=== PATIENT | female | born 1995 | race Caucasian/White ===

== ENCOUNTER 2022-04-21 12:39 | Emergency (ER) | payer OTHER ==
--- OUTSIDE RECORDS SUMMARY | 2022-04-21 12:42 | XMS REPORT | Continuity of Care Document ---
:1995 Author Organization Formerly [facility] t Address [address] [place] [address] Care Team Providers Name Role Phone PCP, PATIENT DOES NOT HAVE A Primary Care Physician UnavailMirian Trent MD Attending Clinician MIRIAN HANSEN Attending Clinician Unavailable Payers Payer Name Policy Type Policy Number Effective Date Expiration Date S ource Problems Condition Condition Condition Status Onset Resolution Last Treating Co mments Source Name Details Category Date Date Treatment Clinician Date Obesity Obesity Disease Active Univers (BMI (BMI 5-12 ity of 30-39.9) 30-39.9) 00:00: [address] Allergies, Adverse Reactions, Alerts Allergy Allergy Status Severity Reaction(s) Onset Inactive Treating Comm ents Source Name Type Date Date Clinician NO KNOWN Drug Active Univers ALLERGIE Class ity of S [facility] Social History Social Habit Start Date Stop Date Quantity Comments Source Exposure to Not sure [facility] SARS-CoV-2 [facility] (event) [place] Alcohol intake 2021-09-15 2021-09-15 Ex-drinker [facility] 00:00:00 00:00:00 (finding) [facility] Tobacco use and 2019-12-21 2019-12-21 Never used Universit y of exposure 00:00:00 00:00:00 [facility] Sex Ass[birth year] At [birth year] Universit y of 00:00:00 00:00:00 [facility] Smoking Status Start Date Stop Date Source Never smoker [facility] Medications Ordered Filled Start Stop Current Ordering Indication Dosage Frequency Signature Comments Components Source Medication Medication Date Date Medication? Clinician (SIG) Name Name PNV Yes Take by Univers no.153/FA/o 2-18 mouth. ity of m3/dha/epa/ 09:18: [place] [facility] ( Branch GUMMIES ORAL) PNV Yes Take by Univers no.153/FA/o 2-18 mouth. ity of m3/dha/epa/ :18: [place] [facility] ( Branch GUMMIES ORAL) ibuprofen 2020-08 Yes [id number] 800mg Take 1 Univers 800 mg 2-08 102 tablet by ity of tablet 00:00: mouth [place] 00 every 6 Medical (six) Branch hours as needed for Pain (scale 4-6). ibuprofen 2020-08 Yes [id number] 800mg Take 1 Univers 800 mg 2-08 102 tablet by ity of tablet 00:00: mouth [place] 00 every 6 Medical (six) Branch hours as needed for Pain (scale 4-6). ferrous Yes [id number] 325mg Take 1 Un lina sulfate 325 9-23 tablet by ity of mg (65 mg 00:00: mouth 2 [place] iron) 00 (two) Medical tablet times Branch daily. ferrous Yes [id number] 325mg Take 1 Un lina sulfate 325 9-23 tablet by ity of mg (65 mg 00:00: mouth 2 [place] iron) 00 (two) Medical tablet times Branch daily. Immunizations Ordered Filled Immunization Date Status Comments [facility] e Immunization Name Name Influenza Virus 2021-06-23 Completed Universit y of Vaccine [facility], 00:00:00 [place] [facility] Preserv and ABX Branch Free 6 MO-64 YRS Influenza Virus 2021-06-23 Completed Universit y of Vaccine [facility], 00:00:00 [place] [facility] Preserv and ABX Branch Free 6 MO-64 YRS TDAP 2021-05-07 Completed [facility] 00:00:00 [facility] TDAP 2021-05-07 Completed [facility] 00:00:00 [facility] Vital Signs Vital Name Observation Time Observation Value Comments Source Systolic blood 2021-11-20 13:29:00 116 mm[Hg] Univer sity of pressure [facility] Diastolic blood 2021-11-20 13:29:00 77 mm[Hg] Unive rsity of pressure [facility] Heart rate 2021-11-20 13:29:00 90 /min [facility] Body temperature 2021-11-20 13:29:00 36.61 [place] Univ ersity of [facility] Body height 2021-11-20 13:29:00 160 cm [facility] Body weight 2021-11-20 13:29:00 73.573 kg [facility] BMI 2021-11-20 13:29:00 28.73 kg/m2 [facility] Procedures This patient has no known procedures. Encounters Start End Encounter Admission Attending Care Care Encounter Source Date/Time Date/Time Type Type Clinicians Facility Department ID 2021-11-20 2021-11-20 Office Tyrone [facility] [id number] Univers 08:30:00 08:56:43 Visit Mirian BOCANEGRA [id number] LilianABRAZO [facility] [id number] [place] PROFESSIO [id number] Az dical [address] 2021-11-20 2021-11-20 Outpatient R [facility] [id number] Univers 08:30:00 08:56:43 MIRIAN mcdermott [facility] Results This patient has no known results.
[2022-04-21 13:14] LABS: Urine Blood Negative (Negative); Urine Glucose Negative (Negative); Urine Protein Negative (Negative); Urine Specific Gravity 1.025 (1.005-1.030); Urine pH 6.5 (5.0-7.0)
[2022-04-21 13:20] LABS: Urine Specific Gravity/Preg 1.025 (1.005-1.030)
[2022-04-21] MEDS ORDERED: LIDOCAINE 4% PATCH ONE (13:26)
[2022-04-21] MEDS ORDERED: KETOROLAC 30 MG/ML INJ ONE (13:26)
[2022-04-21 13:32] LABS: Urine Mucus Slight /HPF (None Seen); Urine RBC <5 /HPF (None Seen)
--- NOTE | 2022-04-21 13:32 | RAD REPORT ---
EXAM DESCRIPTION: RAD - Lumbar Spine 3 Views - 04/21/2022 1:22 pm CLINICAL HISTORY: Back pain FINDINGS: No fracture or dislocation is seen. Mild disc space narrowing L5-S1 Mild scoliosis
--- NOTE | 2022-04-21 14:15 | EDPHYS ---
Physician Documentation [facility] Name: Jenny Cheung Age: 27 yrs Sex: Female : 1995 Arrival Date: 04/21/2022 Time: 12:41 Bed 12 Private MD: ED Physician Akbar Phoenix HPI: 04/21 13:00 This 27 yrs old Female presents to ER via Ambulatory with complaints of Back Pain. cp 13:00 The patient presents with pain that is acute. The symptoms are located in the right low cp back. Onset: The symptoms/episode began/occurred yesterday. intermittent down back of right leg. Associated signs and symptoms: Pertinent negatives: abdominal pain, chest pain, dysuria, fever, hematuria, incontinence, numbness, urinary retention, weakness. The problem was sustained pain started after bending over to pick son up. Modifying factors: the patient symptoms are aggravated by standing, walking. Severity of symptoms: in the emergency department the symptoms are unchanged. Patient reports history of lower back injury as child sustained from fall. 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 - Social history:: Smoking status: Patient denies any tobacco usage or history of. ROS: 13:05 Constitutional: Negative for body aches, chills, fever, poor PO intake. cp 13:05 Eyes: Negative for injury, pain, redness, and discharge. cp 13:05 ENT: Negative for drainage from ear(s), ear pain, sore throat, difficulty swallowing, difficulty handling secretions. 13:05 Neck: Negative for pain with movement, pain at rest, stiffness. 13:05 Cardiovascular: Negative for chest pain, palpitations. 13:05 Respiratory: Negative for cough, shortness of breath, wheezing. 13:05 Abdomen/GI: Negative for abdominal pain, vomiting, diarrhea, constipation, rectal pain, bowel incontinence. 13:05 Back: Positive for pain at rest, pain with movement. 13:05 : Negative for urinary symptoms, difficulty urinating, bladder incontinence. 13:05 Neuro: Negative for altered mental status, headache, numbness, tingling, weakness. 13:05 All other systems are negative. Exam: 13:10 Constitutional: The patient appears in no acute distress, alert, awake, non-toxic, well cp developed, well nourished, uncomfortable. 13:10 Head/Face: Normocephalic, atraumatic. cp 13:10 Eyes: Periorbital structures: appear normal, Conjunctiva: normal, no exudate, no injection, Sclera: no appreciated abnormality, Lids and lashes: appear normal, bilaterally. 13:10 ENT: External ear(s): are unremarkable, Nose: is normal, Mouth: Lips: moist, Oral mucosa: pink and intact, moist, Posterior pharynx: Airway: no evidence of obstruction, patent. 13:10 Neck: ROM/movement: is normal, is supple, without pain, no range of motions limitations. 13:10 Chest/axilla: Inspection: normal. 13:10 Cardiovascular: Rate: normal, Rhythm: regular. 13:10 Respiratory: the patient does not display signs of respiratory distress, Respirations: normal, no use of accessory muscles, no retractions, labored breathing, is not present, Breath sounds: are clear throughout, no decreased breath sounds, no stridor, no wheezing. 13:10 Abdomen/GI: Exam negative for discomfort, distension, guarding, Inspection: abdomen appears normal. 13:10 Back: pain, that is moderate, of the right low back, ROM is painful, with all movement, CVA tenderness, is absent, Straight leg raises: of both lower extremities does not illicit pain. 13:10 Skin: no rash present. 13:10 Neuro: Orientation: to person, place \T\ time. Mentation: is normal, Motor: moves all fours, strength is normal, Sensation: is normal, Gait: is steady, Deep tendon reflexes are 2+ (normal) in the right patellar, right Achilles, left patellar and left Achilles. Vital Signs: 12:47 BP 128 / 80; Pulse 78; Resp 20; Temp 98.8; Pulse Ox 100% ; Weight 81.65 kg; Height 5 kb3 ft. 3 in. (160.02 cm); Pain 10/10; 14:51 Pulse 76; Resp 17; Pulse Ox 100% on R/A; jd3 12:47 Body Mass Index 31.89 (81.65 kg, 160.02 cm) kb3 MDM: 12:53 Patient medically screened. cp 14:14 Data reviewed: vital signs, nurses notes, lab test result(s), radiologic studies, plain cp films. 14:14 Differential diagnosis: Ureterolithiasis UTI, sciatica, caudae equina, spinal stenosis. cp Test interpretation: by ED physician or midlevel provider: plain radiologic studies. Counseling: I had a detailed discussion with the patient and/or guardian regarding: the historical points, exam findings, and any diagnostic results supporting the discharge/admit diagnosis, lab results, radiology results, the need for outpatient follow up, a family practitioner. 04/21 12:53 Order name: Urine Microscopic Only; Complete Time: 13:32 cp 04/21 13:14 Order name: Urine --Ancillary (enter results); Complete Time: 13:32 bd 04/21 13:01 Order name: XRAY Lumbar Spine (3 Views); Complete Time: 19:53 cp 04/21 13:15 Order name: Urine Dipstick-Ancillary; Complete Time: 13:32 EDMS 04/21 13:32 Interpretation: Normal except: UESTR Trace. cp 04/21 12:53 Order name: Urine Dipstick-Ancillary (obtain specimen); Complete Time: 13:09 cp 04/21 12:53 Order name: Urine Test (obtain specimen); Complete Time: 13:09 cp 04/21 13:01 Order name: Misc. Order: may give meds if test negative; Complete Time: 13:15 cp Administered Medications: 13:24 Drug: Lidoderm Patch 5 % (700 mg/patch) 1 patches Route: Topical; Site: affected area; jd3 14:21 Follow up: Response: No adverse reaction jd3 13:24 Drug: Ketorolac 60 mg Route: IM; Site: right gluteus; jd3 14:21 Follow up: Response: No adverse reaction jd3 Disposition Summary: 04/21/22 14:14 Discharge Ordered Location: Home cp Problem: new cp Symptoms: have improved cp Condition: Stable cp Diagnosis - Low back pain cp - Radiculopathy, lumbar region cp Followup: cp - With: Private Physician - When: 2 - 3 days - Reason: Worsening of condition Discharge Instructions: - Discharge Summary Sheet cp - Acute Back Pain, Adult cp - Back Injury Prevention, Idup-dw-Nsuj cp - Heat Therapy cp - Back Exercises cp Forms: - Medication Reconciliation Form cp - Thank You Letter cp - Antibiotic Education cp - Prescription Opioid Use cp Prescriptions: - Lidoderm 5 % Topical adhesive patch,medicated - apply 1 patch by TOPICAL route once daily As needed; 10 patch; Refills: 0, cp Product Selection Permitted - Cyclobenzaprine 10 mg Oral Tablet - take 1 tablet by ORAL route every 8 hours As needed; 20 tablet; Refills: 0, cp Product Selection Permitted - Medrol (Too) 4 mg Oral Tablets, Dose Pack - take 1 tablet by ORAL route as directed - follow package instructions; 1 cp packet; Refills: 0, Product Selection Permitted Addendum: 04/22/2022 19:52 Co-signature as Attending Physician, Akbar Phoenix DO I was immediately available on-site m s3 in the Emergency Department for consultation in the care of the patient. . Signatures: Dispatcher [employer] EDMS Ivan Farfan PA PA cp Davies, Jonathon, RN RN jd3 Akbar Phoenix DO DO ms3 Erin Love, RN RN kb3
--- NOTE | 2022-04-21 14:15 | ER ---
Nurse's Notes [facility] Name: Jenny Cheung Age: 27 yrs Sex: Female : 1995 Arrival Date: 04/21/2022 Time: 12:41 Bed 12 Private MD: Diagnosis: Low back pain;Radiculopathy, lumbar region Presentation: 04/21 12:47 Chief complaint: Patient states: Pt reports she she picked her son up yesterday and kb3 felt lower back pain radiating down her right leg. Pain is worse with walking. Coronavirus screen: Vaccine status: Patient reports receiving the 2nd dose of the covid vaccine. Client denies travel out of the [place] in the last 14 days. At this time, the client does not indicate any symptoms associated with coronavirus-19. Ebola Screen: Patient negative for fever greater than or equal to 101.5 degrees Fahrenheit, and additional compatible Ebola Virus Disease symptoms Patient denies exposure to infectious person. Patient denies travel to an Ebola-affected area in the 21 days before illness onset. No symptoms or risks identified at this time. Initial Sepsis Screen: Does the patient meet any 2 criteria? No. Patient's initial sepsis screen is negative. Does the patient have a suspected source of infection? No. Patient's initial sepsis screen is negative. Risk Assessment: Do you want to hurt yourself or someone else? Patient reports no desire to harm self or others. Onset of symptoms was April 20, 2022 at 12:00. 12:47 Method Of Arrival: Ambulatory kb3 12:47 Acuity: JERRI 4 kb3 Triage Assessment: 12:50 General: Appears in no apparent distress. uncomfortable, Behavior is calm, cooperative. kb3 Pain: Complains of pain in left low back and right low back Pain radiates to right gluteal fold and right hamstring Pain currently is 10 out of 10 on a pain scale. Quality of pain is described as burning, sharp, shooting, stabbing, Pain began 1 day ago. Is continuous. Musculoskeletal: Pain in lower back, worse on right side, radiating down right leg. 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 - Social history:: Smoking status: Patient denies any tobacco usage or history of. Screenin:25 Abuse screen: Denies threats or abuse. Nutritional screening: No deficits noted. jd3 Tuberculosis screening: No symptoms or risk factors identified. Fall Risk Ambulatory Aid- None/Bed Rest/Nurse Assist (0 pts). Gait- Normal/Bed Rest/Wheelchair (0 pts) Mental Status- Oriented to own ability (0 pts). Total Jiménez Fall Scale indicates No Risk (0-24 pts). Assessment: 13:24 General: Appears in no apparent distress. uncomfortable, Behavior is calm, cooperative, jd3 appropriate for age. Pain: Complains of pain in right lower back Pain radiates to right leg Quality of pain is described as sharp, shooting. Neuro: Meyers Agitation-Sedation Scale (RASS): 0 - Alert and Calm Level of Consciousness is awake, alert, obeys commands, Oriented to person, place, time, situation. Cardiovascular: Denies chest pain, Capillary refill < 3 seconds Patient's skin is warm and dry. Respiratory: Airway is patent Respiratory effort is even, unlabored, Respiratory pattern is regular, symmetrical, Denies cough, shortness of breath. GI: No signs and/or symptoms were reported involving the gastrointestinal system. : No signs and/or symptoms were reported regarding the genitourinary system. EENT: No signs and/or symptoms were reported regarding the EENT system. Derm: Skin is intact, Skin is dry, Skin is normal, Skin temperature is warm. Musculoskeletal: Circulation, motion, and sensation intact. Range of motion: intact in all extremities. 14:20 Reassessment: Patient appears in no apparent distress at this time. No changes from jd3 previously documented assessment. Patient and/or family updated on plan of care and expected duration. Pain level reassessed. Patient is alert, oriented x 3, equal unlabored respirations, skin warm/dry/pink. 14:51 Reassessment: Patient appears in no apparent distress at this time. Patient and/or jd3 family updated on plan of care and expected duration. Pain level reassessed. Patient is alert, oriented x 3, equal unlabored respirations, skin warm/dry/pink. Patient states feeling better. Vital Signs: 12:47 BP 128 / 80; Pulse 78; Resp 20; Temp 98.8; Pulse Ox 100% ; Weight 81.65 kg; Height 5 kb3 ft. 3 in. (160.02 cm); Pain 10/10; 14:51 Pulse 76; Resp 17; Pulse Ox 100% on R/A; jd3 12:47 Body Mass Index 31.89 (81.65 kg, 160.02 cm) kb3 ED Course: 12:41 Patient arrived in ED. rg4 12:44 Ivan Farfan PA is PHCP. cp 12:44 Akbar Phoenix DO is Attending Physician. cp 12:50 Triage completed. kb3 12:50 Arm band placed on right wrist. Patient placed in an exam room. kb3 12:54 Sha Hobbs RN is Primary Nurse. jd3 13:24 XRAY Lumbar Spine (3 Views) In Process Unspecified. EDMS 13:26 Patient has correct armband on for positive identification. Bed in low position. Call jd3 light in reach. Side rails up X 1. Pulse ox on. NIBP on. 14:51 No provider procedures requiring assistance completed. Patient did not have IV access jd3 during this emergency room visit. Administered Medications: 13:24 Drug: Lidoderm Patch 5 % (700 mg/patch) 1 patches Route: Topical; Site: affected area; jd3 14:21 Follow up: Response: No adverse reaction jd3 13:24 Drug: Ketorolac 60 mg Route: IM; Site: right gluteus; jd3 14:21 Follow up: Response: No adverse reaction jd3 Medication: 13:25 VIS not applicable for this client. jd3 Outcome: 14:14 Discharge ordered by MD. cp 14:51 Discharged to home ambulatory, with family. jd3 14:51 Condition: stable 14:51 Discharge instructions given to patient, Instructed on discharge instructions, follow up and referral plans. medication usage, Demonstrated understanding of instructions, follow-up care, medications, Prescriptions given X 3. 14:52 Patient left the ED. jd3 Signatures: Dispatcher [employer] EDMS Ivan Farfan PA PA Yuli Lin rg4 Sha Hobbs, RN RN jd3 Erin Love, RN RN kb3
[2022-04-21 15:01] VITALS: BP 128/80; TEMP 98.8; O2SAT 100
== END 2022-04-21 14:52 | disposition home or self-care (01) ==
LOC: ER 12:39
DX: M54.16 Radiculopathy, lumbar region (principal)
CPT/HCPCS: 81025; 72100; J2001; 81003; 81015